=== PATIENT | male | born 1970 | race Caucasian/White ===

== ENCOUNTER 2016-06-07 09:27 | Emergency (ER) | payer SELFPAY ==
[~2016-06-07] VITALS: Ht 180.3 cm; Wt 90.0 kg
[~2016-06-07 09:27] MED LIST: CEPH500C3 PO; IBUP600T26 PO
[2016-06-07 09:35] VITALS: BP 135/96; PULSE 97; RESP 18; TEMP 98
[2016-06-07] MEDS ORDERED: TETANUS/DIPHTHERIA TOXOID ADULT 0.5 ML VIAL IM ONE (10:00)
--- NOTE | 2016-06-07 10:06 | PD ---
HPI Chief Complaint: Bite or Sting Time Seen by Provider: 09:55 Travel History International Travel<30 days: No Contact w/Intl Traveler<30days: No Traveled to known affect area: No History of Present Illness HPI This patient complains of dog bite. Duration 2 hours ago. Severity is moderate. He says he was coming out of a convenience store and a dog was outside and bit him in the left wrist. It also bit him in the right upper arm. Paramedics were called and brought him to the emergency room. He thinks his tetanus was 7 years ago. No head or neck or face injury. No alleviating factors. PFSH Past Medical History Hx Anticoagulant Therapy: No Cardiovascular Problems: No Chemotherapy: No Cerebrovascular Accident: No Diabetes: No Respiratory: No Social History Alcohol Use: Yes ([employer]) Tobacco Use: No Substance Use: Yes Allergies-Medications (Allergen,Severity, Reaction): Coded Allergies: No Known Allergies (Unverified , 06/07/16) Reported Meds & Prescriptions Reported Meds & Active Scripts Active Augmentin (Amoxicillin-Clavulanate) 875-125 mg Tab 875 Mg PO BID not for use in CrCl <30 ml/min. Review of Systems General / Constitutional: No: Fever Eyes: No: Visual changes HENT: No: Headaches Cardiovascular: No: Chest Pain or Discomfort Respiratory: No: Shortness of Breath Gastrointestinal: No: Abdominal Pain Genitourinary: No: Dysuria Musculoskeletal: Positive: Arthralgias, Limited ROM, Pain Skin: No Rash Neurologic: No: Weakness Psychiatric: No: Depression Endocrine: No: Polydipsia Hematologic/Lymphatic: No: Easy Bruising Physical Exam Narrative GENERAL: Well-nourished, well-developed patient in no apparent distress. SKIN: Focused skin assessment reveals no rash and nodules. Skin is Warm and dry. HEAD: Atraumatic. Normocephalic. EYES: Pupils equal and round. No scleral icterus. No injection or drainage. ENT: No nasal bleeding or discharge. Mucous membranes pink and moist. NECK: Trachea midline. No JVD. CARDIOVASCULAR: Regular rate and rhythm. No murmur appreciated. RESPIRATORY: No accessory muscle use. Clear to auscultation. Breath sounds equal bilaterally. GASTROINTESTINAL: Abdomen soft, non-tender, nondistended. Hepatic and splenic margins not palpable. MUSCULOSKELETAL: No obvious deformities. No clubbing. No cyanosis. No edema. The patient has several abrasions and puncture wounds to the left wrist. The deepest one is over the distal radius. More of a 1 cm laceration. He has good pulse and capillary refill and sensation. Decent flexion and extension of all the fingers but difficult to accurately gauge because his effort and participation in exam are poor. Has some abrasion to the right tricep area and a very tiny little puncture wound. No bony tenderness on the right arm. Left wrist is tender. NEUROLOGICAL: Awake and alert. No obvious cranial nerve deficits. Motor grossly within normal limits. Normal speech. PSYCHIATRIC: Appropriate mood and affect; insight and judgment questionable. Data Data Last Documented VS Vital Signs Date Time Temp Pulse Resp B/P Pulse Ox O2 Delivery O2 Flow Rate FiO2 06/07/16 09:35 98.0 97 18 135/96 Orders Wrist, Complete ([id number]) (06/07/16 ) Tetanus/Diphtheria Tox Adult (Tetanus/Di (06/07/16 10:00) MDM Medical Decision Making Medical Screen Exam Complete: Yes Emergency Medical Condition: Yes Medical Record Reviewed: Yes Differential Diagnosis Dog bite, puncture wound, laceration Narrative Course I have reviewed the patient's electronic medical record. Patient's been here multiple times for substance abuse problems Patient has an odd affect, he is acting a bit goofy. He may be under the influence of substances. Clearly is in his history. Regardless, I am doing the following: I reviewed his left wrist x-rays which show no fracture I gave him a tetanus booster Procedure note: Patient gives verbal consent for wound care and suture of dog bites to left wrist and right upper arm Use to control top syringe and 27-gauge needle to repeatedly irrigate out all of the dog bite areas I did this multiple times and as thorough as possible. I explored the wounds. I don't see any vital structures encountered. No vascular injury. I don't see any evidence of ligament or tendon injury.LACERATION LOCATION: Left wrist LENGTH: 1 cm NUMBER OF STITCHES/MABEL: 1 REPAIR: The area of the laceration was prepped with Betadine and sterilely draped. No anesthesia needed for one suture. The wound was copiously irrigated and explored without evidence of foreign body, tendon injury or neurovascular injury. The wound was closed using 4-0 Ethilon in a single layer repair. A sterile dressing was applied. The patient was advised to keep the dressing clean and dry. Patient tolerated the procedure well. I placed 1 suture in the middle of the small laceration to approximate it but it is not tightly closed. I used Steri-Strips on either side of the suture. Risk of infection will be higher with tight closure. The other shallow wounds are closed with Steri-Strips and are more puncture wounds. I prescribed him Augmentin for one week I gave him a sling Recommend primary care follow-up Discuss signs and symptoms of wound infection and he should return if any develop Registration personnel is filling out the animal control bite report and the patient should follow-up with animal control for discussion of rabies prophylaxis Diagnosis Primary Impression: Dog bite of arm Qualified Code: S41.152A - Dog bite of arm, left, initial encounter Additional Instructions: The patient was advised to follow up with their physician and return if they worsen. Follow-up with animal control to discuss rabies shots Med/Other Pt SpecificInfo: Prescription(s) given Scripts Amoxicillin-Clavulanate (Augmentin)875-125 mg Sel159 Mg PO BID #14 TAB Ref 0 not for use in CrCl <30 ml/min. Prov:Renard Veneags MD 06/07/16 Disposition: 01 DISCHARGE HOME Condition: Stable Renard Venegas MD Jun 07, 2016 10:06
[2016-06-07] MEDS ORDERED: AUGM875T PO (10:52)
--- NOTE | 2016-06-07 10:55 | RADRPT ---
EXAM DATE/TIME: 06/07/2016 10:44 [facility] COMPARISON: No previous studies available for comparison. INDICATIONS : Patient states that he got bit by a dog. MEDICAL HISTORY : None. SURGICAL HISTORY : None. ENCOUNTER: Initial ACUITY: 1 day PAIN SCORE: 8/10 LOCATION: Left lateral wrist FINDINGS: Mineralization alignment are normal. There is no evidence of fracture or destructive change. No artic ular abnormality is identified. Soft tissue swelling and air present within the soft tissues of the r adial and volar aspects of the wrist primarily. CONCLUSION: No acute bony injury. No radiodense foreign body Tai Quinonez MD on June 07, 2016 at 10:52 Board Certified Radiologist. This report was verified electronically.
[2016-06-07] MEDS ORDERED: IBUP-232 PO (11:13)
== END 2016-06-07 11:30 | disposition home or self-care (01) ==
LOC: NEPA 09:27
DX: S61.552A Open bite of left wrist, initial encounter (principal); S41.151A Open bite of right upper arm, initial encounter; W54.0XXA Bitten by dog, initial encounter; Y92.512 Supermarket, store or market as the place of occurrence of the external cause; Z23 Encounter for immunization
CPT/HCPCS: 12001; 73110; 90471; 90714; 99283; L3908